=== PATIENT | female | born 1940 | race Caucasian/White ===

== ENCOUNTER 2017-04-24 07:46 | Outpatient (CLI) | payer MEDICARE, OTHER ==
--- NOTE | 2017-04-24 11:27 | MRI ---
MRI LUMBAR SPINE WITHOUT CONTRASTS: Technique: Multiplanar, multisequence imaging of the lumbar spine obtained. History: Low back pain. Paraesthesia to the right leg and hip. FINDINGS: Lumbar vertebra maintain normal height. There is mild anterior wedging of the T11 vertebra. No edema is present. This suggests a stable anterior wedge compression. There is a grade I spondylolisthesis at L4-5. There are degenerative disc changes at all levels. L1-2: Mild disc bulge abuts the thecal sac. Mild facet hypertrophy. No significant central canal or f oraminal stenosis. L2-3: Diffuse disc bulge flattens the thecal sac. Facet arthrosis and hypertrophy. Mild central canal stenosis. L3-4: Broad based disc bulge with ==== facet and ligamentous hypertrophy is more prominent. There is moderate central canal stenosis at this level. L4-5: Anterolisthesis with associated diffuse disc bulge flattens the anterior thecal sac. Facet and ligamentous hypertrophy. Moderate central canal stenosis. Bilateral foraminal stenosis. L5-S1: Mild disc bulge, mild facet arthrosis. No central canal or foraminal stenosis. IMPRESSION: 1. Grade I anterolisthesis at L4-5 with associated diffuse disc bulge resulting in moderate central c anal stenosis and bilateral foraminal stenosis. Foraminal encroachment appears more pronounced on the left. 2. Mild central canal stenosis of L3-4 and L2-3 as described. 3. Mild anterior wedge deformity at the T11 vertebra appears stable. POS: [facility]
--- NOTE | 2017-04-24 12:58 | MRI ---
MRI PELVIS WITHOUT CONTRAST: INDICATIONS: A 76-year-old female with neuralgia and paresthesia of the right aspect of the pelvis. COMPARISON: No comparisons are available. TECHNIQUE: Multiplanar, multisequence MR images were obtained of the pelvis without IV contrast. FINDINGS: There is a partial-thickness tear involving the mid right gluteus medius, at its insertion, with surr ounding trochanteric bursitis. The right gluteus medius is intact. The rectus femoris and hamstring origins on the right appear within normal limits. No iliopsoas bursitis is evident. There is moder ate degenerative changes involving both hips, associated with subchondral cyst-like abnormalities see n involving the acetabula anteriorly. No definite paralabral cyst is evident. The sacral neural for armaan appear to be patent. The visualized aspects of the sciatic nerve appear within normal limits. There are scattered diverticula involving the colon. No free fluid is evident. There is a fat-cont aining right inguinal hernia. No enlarged lymph nodes are evident. There is a 6.7 cm suspected simp le cystic abnormality involving the left adnexa on image 24 of series 6. The visualized aspects of t he right adnexa are unremarkable. IMPRESSION: 1. Partial-thickness split tear involving the right gluteus minimis tendon, at the insertion, with a ssociated mild to moderate trochanteric bursitis. 2. 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 3. A 7 mm suspected serous inclusion cyst of the left ovary. Recommend a follow-up pelvic ultrasoun d in one year to document stability. 4. Colonic diverticulosis. 5. Fat-containing right inguinal hernia. 6. No appreciable sacral neural foraminal narrowing demonstrated. POS: [facility]
== END 2017-04-24 07:47 | disposition home or self-care (01) ==
LOC: MRI 07:46
PROVIDERS: ATTEND Family Medicine
DX: G57.11 Meralgia paresthetica, right lower limb (principal); S76.311A Strain of muscle, fascia and tendon of the posterior muscle group at thigh level, right thigh, initial encounter; M16.0 Bilateral primary osteoarthritis of hip; N83.202 Unspecified ovarian cyst, left side; K57.30 Diverticulosis of large intestine without perforation or abscess without bleeding; K40.90 Unilateral inguinal hernia, without obstruction or gangrene, not specified as recurrent; M48.061 Spinal stenosis, lumbar region without neurogenic claudication; M43.8X4 Other specified deforming dorsopathies, thoracic region
CPT/HCPCS: 72148; 72195

== ENCOUNTER 2017-07-11 08:29 | Outpatient (CLI) | payer MEDICARE, OTHER ==
[2017-07-11 09:24] LABS: Hemoglobin 12.1 g/dL (12.0-16.0); Mean Corpuscular HGB CONC 32.6 g/dL (32.0-36.0); Mean Corpuscular Hemoglobin 29.7 pg (27.0-31.0); Mean Corpuscular Volume 90.9 fl (81.0-99.0); Mean Platelet Volume 6.3 fL (7.4-10.4); Platelet Count 306 thou/uL (130-400); RBC Distribution Width 12.3 % (11.5-14.5); Red Blood Cell (RBC) Count 4.09 mill/uL (4.20-5.40); White Blood Cell (WBC) Count 5.1 thou/uL (4.8-10.8)
[2017-07-11 09:48] LABS: Anion Gap 9 mmol/L (10-20); BUN (Urea Nitrogen) 13 mg/dL (9.8-20.1); Calc. Creatinine Clearance 0 mL/min (70-130); Calcium 9.4 mg/dL (7.8-10.44); Carbon Dioxide 27 mmol/L (23-31); Chloride 108 mmol/L (98-107); Estimated GFR-MDRD 73; Glucose 92 mg/dL (83-110); Sodium 140 mmol/L (136-145)
--- NOTE | 2017-07-12 08:06 | EKG ---
Test Reason : Blood Pressure : / mmHG Vent. Rate : 064 BPM Atrial Rate : 064 BPM P-R Int : 212 ms QRS Dur : 084 ms QT Int : 414 ms P-R-T Axes : 058 072 041 degrees QTc Int : 427 ms Sinus rhythm with 1st degree A-V block Possible Anterior infarct (cited on or before 05-JAN-2008) Abnormal ECG When compared with ECG of 05-JAN-2008 10:44, OH interval has increased Confirmed by DR. Ajay LEW ([id number]) on 07/12/2017 8:06:26 AM Referred By: YAIMA Confirmed By:DR. Ajay LEW
== END 2017-07-11 08:30 | disposition home or self-care (01) ==
LOC: LABBT 08:29
PROVIDERS: ATTEND Neurological Surgery
DX: Z01.818 Encounter for other preprocedural examination (principal); M43.16 Spondylolisthesis, lumbar region
CPT/HCPCS: 80048; 85027; 93005; 93010

== ENCOUNTER 2017-07-11 08:30 | Inpatient (IN) | payer MEDICARE, OTHER ==
[2017-07-11 09:07] VITALS: BMI 28.4
[2017-07-14] MEDS ORDERED: CEFAZOLIN/Water 2 GM/20 ML SYRINGE ONE (06:03)
[2017-07-14] MEDS ORDERED: Sodium Chloride 0.9% 10 ML ONE (06:27)
[2017-07-14] MEDS ORDERED: Fentanyl 250 MCG/5 ML VIAL ONE ×2 (06:55→10:22)
--- NOTE | 2017-07-14 09:29 | OP ---
DATE OF PROCEDURE: 07/14/2017 SURGEON: Rosa Maria Carlin BUILDING PERFORMANCE SPECIALIST: Nitin Oquendo PA-C PROCEDURE: L4-5 laminectomy, posterolateral arthrodesis, demineralized bone matrix, local morselized autograft, pedicle screw instrumentation L4-L5. PROCEDURE IN DETAIL: The patient was brought in the operating room intubated. She was rolled in the prone position on gel-filled chest rolls. Incision made exposing L4 and L5 and our level was confir med by x-ray. As expected, she had very severe deformity with sway back syndrome anterolisthesis. W e needed to expose from L3-S1 to adequately access this area. A complete L5, complete L4, and inferi or L3 laminectomies were performed to adequately decompress the L4-5 interspace. After complete deco mpression had been secured, pedicle screws were placed at L4 and L5 bilaterally using lateral fluoros copic guidance. The bone was extremely soft and osteoporotic. A maritza was secured between the screws, connected by nuts which were final tightened. The wound was extensively irrigated, immaculate hemos tasis was secured. A combination of demineralized bone matrix, local morselized autograft was laid o zack the laminar and posterolateral surfaces for the purpose of arthrodesis. Vancomycin powder was ap plied and the wound was closed in anatomic layers.
[2017-07-14] MEDS ORDERED: Promethazine HCl 25 MG/ML VIAL ONE (09:59)
[2017-07-14] MEDS ORDERED: Non-Formulary Medication 1 EACH PO PRN (10:30)
[2017-07-14] MEDS ORDERED: Ondansetron HCl/PF 4 MG/2 ML Vial IVP PRN (10:30)
[2017-07-14] MEDS ORDERED: Promethazine HCl 25 MG/ML VIAL IM/IV PRN (10:30)
[2017-07-14] MEDS ORDERED: HYDROmorphone 2 MG/ML VIAL SLOW IVP PRN (10:30)
[2017-07-14] MEDS ORDERED: diphenhydrAMINE 25 MG CAP PO PRN (12:07)
[2017-07-14] MEDS ORDERED: Promethazine 25 MG TAB PO PRN (12:07)
[2017-07-14] MEDS ORDERED: tiZANidine HCl 4 MG TAB PO PRN (12:07)
[2017-07-14] MEDS ORDERED: Milk Of Magnesia 30 ML UDCUP PO PRN (12:07)
[2017-07-14] MEDS ORDERED: Meperidine HCl/PF 25 MG/ML VIAL SLOW IVP PRN (12:07)
[2017-07-14] MEDS ORDERED: Promethazine HCl 12.5 MG SUPP PR PRN (12:07)
[2017-07-14] MEDS ORDERED: Mag-Al 1200 mg/1200 mg/30 ML UDCUP PO PRN (12:07)
[2017-07-14] MEDS ORDERED: HYDROcodone/Acetaminophen 7.5/325 mg Tablet PO PRN (12:07)
[2017-07-14] MEDS ORDERED: diphenhydrAMINE 50 MG/ML VIAL IVP PRN (12:07)
[2017-07-14] MEDS ORDERED: Promethazine HCl 25 MG/ML VIAL IM PRN (12:07)
[2017-07-14] MEDS ORDERED: Ondansetron HCl/PF 4 MG/2 ML Vial IM PRN (12:08)
[2017-07-14] MEDS: CEFAZOLIN/Water 2 GM/20 ML SYRINGE SLOW IVP SCH ×2 (14:46→21:11)
[2017-07-14] MEDS: Sodium Chloride 0.9% 1,000 ML IV SCH (14:47)
[2017-07-14] MEDS ORDERED: ePHEDrine/0.9% NaCl/PF SYRINGE 50 mg/10 ml ONE (17:15)
[2017-07-14] MEDS ORDERED: PROPOFOL 200 MG/20 ML VIAL ONE (17:15)
[2017-07-14] MEDS ORDERED: diphenhydrAMINE 50 MG/ML VIAL ONE (17:15)
[2017-07-14] MEDS ORDERED: Lidocaine 1% PF 5 ML VIAL ONE (17:15)
[2017-07-14] MEDS ORDERED: Ketorolac Tromethamine 30 MG/ML VIAL ONE (17:15)
[2017-07-14] MEDS ORDERED: Ondansetron HCl/PF 4 MG/2 ML Vial ONE (17:15)
[2017-07-14] MEDS ORDERED: Glycopyrrolate 0.2 MG/ML 5 ML SYRINGE ONE (17:15)
[2017-07-14] MEDS ORDERED: PHENYLEPHRINE-NS 100 MCG/ML 10 ML SYRINGE ONE (17:15)
[2017-07-14] MEDS ORDERED: Dexamethasone 20 MG/5 ML VIAL ONE (17:15)
[2017-07-14] MEDS ORDERED: traMADol HCl 50 MG TAB PO PRN (20:46)
[2017-07-14] MEDS ORDERED: Atorvastatin Calcium 20 MG TAB PO SCH (21:00)
--- NOTE | 2017-07-14 21:28 | PDOC.PN ---
- Subjective Encounter Start Date: 07/14/17 Encounter Start Time: 13:00 Patient seen and examined. No new complaints. Follows Dr Shane. No CP/SOB. - Objective MAR Reviewed: Yes Vital Signs & Weight: Vital Signs (12 hours) Temp Pulse Resp BP Pulse Ox 07/14/17 21:02 97.9 F 79 16 144/74 H 96 07/14/17 16:00 97.8 F 71 16 115/69 07/14/17 11:50 97.8 F 80 18 98 Weight Weight 171 lb EKG Reviewed by me: Yes (SR, 1st degree AV block) Phys Exam - Physical Examination Constitutional: NAD Respiratory: no wheezing, no rhonchi Cardiovascular: RRR, no rub Gastrointestinal: soft, non-tender, positive bowel sounds Musculoskeletal: no edema Dx/Plan - Plan DVT proph w/SCDs IMPRESSION: 1. HTN 2. HLD 3. Chronic low back pain PLAN: * Cont Toprol * Cont Statins Review of Systems - Review of Systems Respiratory: negative: Cough, Dry, Shortness of Breath, Hemoptysis, SOB with Excertion, Pleuritic Pain, Sputum, Wheezing Cardiovascular: negative: chest pain, palpitations, orthopnea, paroxysmal nocturnal dyspnea, edema, light headedness - Medications/Allergies Allergies/Adverse Reactions: Allergies Allergy/AdvReac Type Severity Reaction Status Date / Time codeine Allergy Verified 07/11/17 09:08 [From Tylenol-Codeine #3] morphine Allergy Verified 07/11/17 09:08 Medications: Current Medications Hydrocodone Bitart/Acetaminophen (Ashley 7.5/325) 1 tab PO Q4H PRN PRN Reason: Pain (1-3) Hydrocodone Bitart/Acetaminophen (Ashley 7.5/325) 2 tab PO Q4H PRN PRN Reason: Moderate Pain (4-6) Al Hydroxide/Mg Hydroxide (Maalox) 30 ml PO Q4H PRN PRN Reason: Heartburn or Indigestion Atorvastatin Calcium (Lipitor) 20 mg PO HS LOUISE Last Admin: 07/14/17 20:42 Dose: 20 mg Cefazolin Sodium (Ancef) 2 gm SLOW IVP Q8HR [facility]OU[facility] Stop: 07/14/17 22:01 Last Admin: 07/14/17 21:11 Dose: 2 gm Cholecalciferol (Vitamin D3) 1,000 units PO QAM LOU[facility] Diphenhydramine HCl (Benadryl) 25 mg PO Q6H PRN PRN Reason: Itching Diphenhydramine HCl (Benadryl) 25 mg IVP Q6H PRN PRN Reason: Itching Fish Oil (Fish Oil) 1,000 mg PO DAILY [facility] Sodium Chloride (Normal Saline 0.9%) 1,000 mls @ 75 mls/hr IV .[id number] [facility] Last Admin: 07/14/17 14:47 Dose: 1,000 mls Ketorolac Tromethamine (Toradol) 15 mg IVP Q6HR [facility] Stop: 07/16/17 12:01 Magnesium Hydroxide (Milk Of Magnesium) 30 ml PO Q12H PRN PRN Reason: Constipation Meperidine HCl (Demerol) 25 mg SLOW IVP Q2H PRN PRN Reason: Moderate Breakthrough Pain Meperidine HCl (Demerol) 35 mg SLOW IVP Q2H PRN PRN Reason: Severe Breakthrough Pain Metoprolol Succinate (Toprol Xl) 50 mg PO HS [facility] Last Admin: 07/14/17 20:42 Dose: 50 mg Ondansetron HCl (Zofran) 4 mg IM Q6H PRN PRN Reason: Nausea Soma 250mg Patient's (Home Medication) 1 each PO QAM [facility] Garlic 1000mg Patient's Home Medication 1 each PO QAM [facility] Promethazine HCl (Phenergan) 12.5 mg IM Q4H PRN PRN Reason: Nausea/Vomiting Promethazine HCl (Phenergan) 12.5 mg PO Q4H PRN PRN Reason: Nausea/Vomiting Promethazine HCl (Phenergan Suppository) 12.5 mg [place] Q4H PRN PRN Reason: Nausea/Vomiting Sodium Chloride (Flush - Normal Saline) 10 ml IVF Q12HR [facility] Last Admin: 07/14/17 21:24 Dose: 10 ml Sodium Chloride (Flush - Normal Saline) 10 ml IVF PRN PRN PRN Reason: Saline Flush Tizanidine HCl (Zanaflex) 4 mg PO Q6H PRN PRN Reason: MUSCLE SPASM Last Admin: 07/14/17 20:42 Dose: 4 mg Tramadol HCl (Ultram) 50 mg PO Q6H PRN PRN Reason: Pain
[2017-07-14] MEDS: HYDROcodone/Acetaminophen 7.5/325 mg Tablet PO PRN (23:37)
[2017-07-14] MEDS: Ketorolac Tromethamine 30 MG/ML VIAL IVP SCH (23:39)
[2017-07-15] MEDS: Ketorolac Tromethamine 30 MG/ML VIAL IVP SCH ×2 (01:57→05:36)
[2017-07-15] MEDS: Sodium Chloride 0.9% 1,000 ML IV SCH (02:32)
[2017-07-15] MEDS ORDERED: Fish Oil 1,000 MG CAP PO SCH (09:00)
[2017-07-15] MEDS ORDERED: SOMA 250 MG PO SCH (09:00)
[2017-07-15] MEDS ORDERED: GARLIC 1000 MG PO SCH (09:00)
[2017-07-15 09:54] VITALS: BP 118/65; TEMP 98.5
[2017-07-15] MEDS: HYDROcodone/Acetaminophen 7.5/325 mg Tablet PO PRN (12:05)
--- NOTE | 2017-07-15 12:26 | DIS ---
ATTENDING PHYSICIAN: Dr. Pratik Dyer. HOSPITAL COURSE: Patient is a 76-year-old female, who was recently seen in our office for low back and right L4 radiculopathy. Her MRI revealed L4-L5 spondylolisthesis and stenosis, L4-L5 de compression and fusion was recommended. The patient underwent the surgery and she is postop day #1 t anamaria. She reports that she is doing well. Her pain is well controlled with p.o. meds. She is dada ating regular diet, and she is voiding appropriate. She was placed in a TLSO following surgery. She has been compliant with this brace for any out of bed activities. I have advised the patient is oka y to remove when she is lying down in the bed or briefly to shower. Her VICKY drain output is trending downward and we will remove and dismiss the patient home today. We will plan to follow up in 2 weeks . I have an appointment made with x-rays at that time. I have discussed home care precautions and r maryana to reach out to us sooner. She has been provided with prescriptions for [place], Zanaflex, and K eflex. Please reach out to Neurosurgery Service for additional questions or concerns.
== END 2017-07-15 12:49 | disposition home or self-care (01) | DRG 460 ==
LOC: SURG A 07-14 05:39 → SURG B 07-14 11:25
PROVIDERS: ADMIT Neurological Surgery; ATTEND Neurological Surgery
PROC: 0SG0071 Fusion of Lumbar Vertebral Joint with Autologous Tissue Substitute, Posterior Approach, Posterior Column, Open Approach (ICD-10-PCS; principal; 2017-07-14)
PROC: 01NB0ZZ Release Lumbar Nerve, Open Approach (ICD-10-PCS; 2017-07-14)
DX: M43.16 Spondylolisthesis, lumbar region (principal); E78.5 Hyperlipidemia, unspecified; I10 Essential (primary) hypertension; M48.061 Spinal stenosis, lumbar region without neurogenic claudication; M51.16 Intervertebral disc disorders with radiculopathy, lumbar region
CPT/HCPCS: 76000; 80048; 85027; 93005; 93010; A4216; C1713; C1768; G8978-GP-CJ; G8979-GP-CI; J0131; J1100; J1200; J1885; J2001; J2405; J2550; J2704; J3010; J3370; J3490

== ENCOUNTER 2017-07-29 15:37 | Outpatient (CLI) | payer MEDICARE, OTHER ==
--- NOTE | 2017-07-29 16:20 | RAD ---
LUMBAR SPINE TWO VIEWS: History: 76-year-old female with history of disc disease, prior surgery on 07-14-17, now with pain in both legs. FINDINGS: Post op laminectomy and pedicle screw placement changes at L4-5 with mild anterolisthesis. No evidenc e for acute fracture. Otherwise, there is generalized spondylosis. IMPRESSION: Post op laminectomy and pedicle screw placement changes at L4-5 with mild anterolisthesis. POS: [facility]
== END 2017-07-29 15:38 | disposition home or self-care (01) ==
LOC: TBSIIMAG 15:37
PROVIDERS: ATTEND Neurological Surgery
DX: M51.36 Other intervertebral disc degeneration, lumbar region (principal); M43.16 Spondylolisthesis, lumbar region; Z98.890 Other specified postprocedural states
CPT/HCPCS: 72100

== ENCOUNTER 2017-09-17 13:07 | Outpatient (CLI) | payer MEDICARE, OTHER ==
--- NOTE | 2017-09-17 14:36 | RAD ---
2 VIEWS LUMBAR SPINE: Date: 09/17/17 HISTORY: Lumbar fusion. Status post surgery 2 months ago. Burning sensation down both legs. COMPARISON: 07/29/17. FINDINGS: Stable mild to moderate degenerative change at the L2-L3 disc space level. Persistent 2.0 mm of retro listhesis of L2 upon L3. Bilateral transpedicular screws at L4 and L5, without perihardware lucency. There is 1.0 cm anterolis thesis of L4 upon L5 (previously also 1.0 cm of anterolisthesis). Stable laminectomy defect at L4. There is a stable mild compression fracture at T12. IMPRESSION: Postsurgical changes as above. POS: [facility]
== END 2017-09-17 13:08 | disposition home or self-care (01) ==
LOC: TBSIIMAG 13:07
PROVIDERS: ATTEND Neurological Surgery
DX: M43.16 Spondylolisthesis, lumbar region (principal); Z98.890 Other specified postprocedural states
CPT/HCPCS: 72100

== ENCOUNTER 2017-12-18 13:19 | Outpatient (CLI) | payer MEDICARE, OTHER ==
--- NOTE | 2017-12-18 13:50 | RAD ---
LUMBAR SPINE SERIES 2 VIEWS: Date: 12/18/17 HISTORY: Follow-up surgery. COMPARISON: 09/17/17. FINDINGS: Postoperative changes of the spine are noted with bilateral pedicle screws placed at the L4-5 level. Approximately 11.0 mm of spondylolisthesis is seen, which is felt to be similar to the prior examinat ion. Minimal retrolisthesis of L2 on L3 and disc narrowing is seen. Overall appearance appears fairly stable. Postop laminectomy changes at L4 are also noted. Bones appear demineralized. Slight scoliosi s convex to the left. IMPRESSION: Stable postop changes. POS: [facility]
== END 2017-12-18 13:20 | disposition home or self-care (01) ==
LOC: TBSIIMAG 13:19
PROVIDERS: ATTEND Neurological Surgery
DX: M43.16 Spondylolisthesis, lumbar region (principal); Z98.890 Other specified postprocedural states
CPT/HCPCS: 72100

== ENCOUNTER 2018-01-07 10:21 | Outpatient (CLI) | payer MEDICARE, OTHER ==
--- NOTE | 2018-01-07 12:39 | MRI ---
MRI OF CERVICAL SPINE PERFORMED WITHOUT CONTRAST ENHANCEMENT: HISTORY: Cervical radiculopathy. Previous surgery. Bilateral leg tingling. COMPARISON: A 11/18/13 CT examination and a 2007 MRI study. FINDINGS: The patient has a reversal to the normal cervical curve. There is anterior plate and screws which benavides ve been placed at the C3-4 level. There is anterolisthesis of C4 on C5 of approximately 4-5 mm. C2-3: Degenerative facet changes are present at this level which are associated with some mild left foraminal narrowing. No central canal stenosis. C3-4: Facet hypertrophic changes are also present at this level with some mild left-sided foraminal narrowing. C4-5: Anterolisthesis at this level is associated with some mild bilateral foraminal narrowing which appears slightly greater on the right and mild canal stenosis. C5-6: Posterior osteophytic bar and disk changes are seen at this level with a mild to moderate degr ee of canal narrowing and some mild to moderate right-sided foraminal stenosis. C6-7: No significant canal or foraminal narrowing. C7-T1: Unremarkable. IMPRESSION: Postoperative changes of the cervical spine with anterior cervical plate and screws placed at the C3- 4 level. There is a reversal to the normal cervical curve. There is anterolisthesis of C4 on C5 wit h mild canal stenosis at C4-5 and mild to moderate canal stenosis at C5-6 as well as areas of foramin al narrowing as discussed above. POS: [facility]
== END 2018-01-07 10:22 | disposition home or self-care (01) ==
LOC: TBSIIMAG 10:21
PROVIDERS: ATTEND Neurological Surgery
DX: M47.12 Other spondylosis with myelopathy, cervical region (principal); M48.02 Spinal stenosis, cervical region; M99.81 Other biomechanical lesions of cervical region; M43.12 Spondylolisthesis, cervical region; Z98.890 Other specified postprocedural states
CPT/HCPCS: 72141

== ENCOUNTER 2019-04-15 10:27 | Emergency (ER) | payer MEDICARE, OTHER ==
[2019-04-15] MEDS ORDERED: Fentanyl 100 MCG/2 ML VIAL ONE (11:16)
[2019-04-15] MEDS ORDERED: Diazepam 10 MG/2 ML SYRINGE IVP SCH (11:30)
--- NOTE | 2019-04-15 12:02 | CT ---
CT lumbar spine noncontrast HISTORY: Low back pain. Injury. Prior surgery. FINDINGS: Minimal chronic compression of the L1 inferior endplate. Vertebral body heights otherwise m aintained. Minimal degenerative retrolisthesis at the L1-2, L2-3, and L3-4 levels. Minimal degenerative spondylolisthesis at the L4-5 level. Bilateral pedicle screws and vertical rods at the L4-5 level without perihardware lucency. Prominent osteophytosis throughout the vertebral bodies and facets. Multilevel disc bulge and prominent osteophytosis. Gas within the L3 right lateral recess appears to represent inferior extension of and L2-3 disc herniation likely compresses the right L3 nerve root. No acute fracture or dislocation are apparent. There is calcification throughout the arterial structu res. IMPRESSION: Prominent osseous degenerative changes and postoperative changes lumbar spine. No acute o sseous abnormalities are demonstrated. Large right posterolateral disc herniation at L2-3 with inferior extension compressing the right L3 n erve root. Clinical correlation regarding the right L3 dermatome is required. Atherosclerosis.
[2019-04-15] MEDS ORDERED: Diazepam 10 MG/2 ML SYRINGE ONE (12:11)
--- NOTE | 2019-04-15 12:28 | RAD ---
Right hip 2 views HISTORY: Right hip pain. FINDINGS: Moderate joint space narrowing. Mild osteophytosis and subchondral sclerosis. Femoral head contour is maintained. No acute fracture, dislocation, or aggressive osseous erosions. IMPRESSION: Mild to moderate osteoarthritic changes right hip.
--- NOTE | 2019-04-15 12:33 | RAD ---
AP view of the pelvis INDICATION: Right-sided back pain COMPARISON: None. FINDINGS: Bones: No acute fracture or subluxation is evident. Bone mineralization appears within normal limits. There is postoperative change at L4-L5 consistent with a posterior lateral interbody fusion and laminectomy changes at L4 and L5. Hips: There is mild degenerative change of both hips. There is chondrocalcinosis. SI joints and symphysis pubis: Normal appearing. Intrapelvic contents: Within normal limits. IMPRESSION: No acute osseous abnormality.
[2019-04-15] MEDS ORDERED: Dexamethasone 4 mg/ml Vial ONE (13:11)
== END 2019-04-15 13:42 | disposition home or self-care (01) ==
LOC: ERS 10:27
DX: M51.16 Intervertebral disc disorders with radiculopathy, lumbar region (principal); E78.5 Hyperlipidemia, unspecified; E78.00 Pure hypercholesterolemia, unspecified; Z79.899 Other long term (current) drug therapy
CPT/HCPCS: 72131; 72170; 96374; 96375; J1100; J3010; J3360

== ENCOUNTER 2019-09-13 13:00 | Outpatient (CLI) | payer MEDICARE, OTHER ==
--- NOTE | 2019-09-13 14:16 | RAD ---
CERVICAL SPINE 5 VIEWS: DATE: 09/13/2019. COMPARISON: None. HISTORY: Pain, prior surgery. FINDINGS: Frontal imaging demonstrates multilevel bilateral facet and uncovertebral osteophyte formation, most prominent on the left within the mid cervical spine. There is atherosclerotic calcification overlyin g the carotid system on the right. Open mouth odontoid view demonstrates a normal-appearing dens in C1-2 articulation. Anterior diskectomy and fusion hardware is present at C3-4. There is reversal of normal cervical lordosis with a focal area of kyphosis within the cervical spine at the C4 level. T here is prominent multilevel disk space narrowing with degenerative end plate change and anterior ost eophyte formation at C4-5, C5-6, C6-7, and C7-T1. On the neutral lateral exam, there is mild anterol isthesis at C4-5 measuring approximately 3 mm. On flexion, the anterolisthesis at C4-5 measures appr oximately 4 mm and on extension the anterolisthesis at C4-5 has decreased to 1-2 mm. IMPRESSION: Postoperative and degenerative change within the cervical spine as detailed above. POS: [facility]
--- NOTE | 2019-09-13 15:06 | MRI ---
MRI lumbar spine noncontrast HISTORY: Low back pain. Prior surgery. FINDINGS: The conus medullaris has a normal appearance. Vertebral body heights are maintained. Mild c hronic appearing compression of the T11 superior endplate is again demonstrated without residual edema. There is desiccation of all of the intervertebral discs. T12-L1: Mild osteophytosis. Central canal and neural foramina are patent. L1-2: Disc space narrowing. Minimal degenerative retrolisthesis. Discogenic endplate changes of the b one marrow. Mild posterior disc bulge. Fluid within the facets and osteophytosis, right greater than left. Centra l canal remains patent. Mild to moderate bilateral foraminal stenoses. L2-3: Disc space narrowing and minimal degenerative retrolisthesis. No significant central canal sten osis. Osteophytosis and fluid in the facets. Right greater than left. Moderate right and mild to moderate left foraminal stenoses. L3-4: Disc space narrowing. Posterior operative decompression suspected. Thecal sac remains widely pa tent. There is osteophytosis of the facets. Moderate right and moderate to severe left foraminal stenoses. L4-5: Metallic susceptibility artifact results from bilateral pedicle screws and vertical rods. There is disc space narrowing and 0.7 cm spondylolisthesis. Posterior operative decompression with a patent thecal sac. Right neural foramen is patent. Possible stenosis of the left neural foramen (also mostly obscured by metallic artifact). L5-S1: Thecal sac is patent. Osteophytosis of the facets. Mild left foraminal stenosis. Right neural foramen is patent. IMPRESSION : Postoperative and multilevel degenerative changes throughout the lumbar spine as detailed above. Sten osis most pronounced at the left L3-4 neural foramen. Clinical correlation and the left L3 dermatome is required.
--- NOTE | 2019-09-13 15:16 | MRI ---
MRI cervical spine noncontrast HISTORY: Neck pain with radiculopathy. Prior surgery. COMPARISON: 01/07/2018. FINDINGS: Desiccation of all of the intervertebral discs. Discogenic endplate changes throughout the bone marrow. No bone marrow edema apparent. C2-3: Osteophytosis. Central canal and neural foramina are patent. C3-4: Anterior operative fixation with metallic susceptibility artifact. Minimal degenerative spondyl olisthesis. Osteophytosis of the facets. Central canal and neural foramina are patent. C4-5: Disc space narrowing. Spondylolisthesis at this level measured at 0.4 cm. Impingement upon the ventral aspect of the spinal cord without abnormal signal. Circumferential degenerative changes. Severe stenosis of the central canal. Neural foramina are patent. C5-6: Disc space narrowing. Minimal degenerative retrolisthesis. Posterior osteophyte/disc complex an d circumferential degenerative changes. Severe stenosis of the central canal. Mild to moderate right and mild left foraminal stenoses. C6-7: Disc space narrowing and minimal degenerative retrolisthesis. Mild posterior osteophyte/disc co mplex. Circumferential degenerative changes. Mild stenosis of the central canal. Moderate right and mild left foraminal stenoses. C7/T1: Disc space narrowing. Posterior osteophyte/disc complex and circumferential degenerative long es. Moderate stenosis of the central canal. Mild right and moderate left foraminal stenoses. IMPRESSION : Postoperative and multilevel degenerative changes throughout the cervical spine as detailed above. Mo st severe at the C4-5 level where there is 4 mm spondylolisthesis and impingement upon the spinal cord. No evidence of myelomalacia.
== END 2019-09-13 13:01 | disposition home or self-care (01) ==
LOC: TBSIIMAG 13:00
PROVIDERS: ATTEND Neurological Surgery
DX: M54.5 Low back pain (principal); M48.02 Spinal stenosis, cervical region; M47.812 Spondylosis without myelopathy or radiculopathy, cervical region; M43.12 Spondylolisthesis, cervical region; M48.061 Spinal stenosis, lumbar region without neurogenic claudication; M47.816 Spondylosis without myelopathy or radiculopathy, lumbar region; Z98.1 Arthrodesis status
CPT/HCPCS: 72050; 72141; 72148

== ENCOUNTER 2020-02-10 10:47 | Outpatient (CLI) | payer MEDICARE, OTHER ==
--- NOTE | 2020-02-10 11:15 | MMO ---
Bilateral MAMMO Bilat Screen [facility]. CLINICAL HISTORY: Patient is 79 years old and is seen for screening. The patient has the following family history of breast cancer: mother. The patient has no personal history of cancer. VIEWS: The views performed were: bilateral craniocaudal with tomosynthesis and bilateral mediolateral oblique with tomosynthesis. FILMS COMPARED: The present examination has been compared to prior imaging studies performed at [facility] on 07/30/2012, 11/26/2013, 03/28/2015 and 01/10/2017. This study has been interpreted with the assistance of computer-aided detection. MAMMOGRAM FINDINGS: There are scattered fibroglandular densities. There are no suspicious masses, suspicious calcifications, or new areas of architectural distortion. IMPRESSION: THERE IS NO MAMMOGRAPHIC EVIDENCE OF MALIGNANCY. A ROUTINE FOLLOW-UP MAMMOGRAM IN 1 YEAR IS RECOMMENDED. THE RESULTS OF THIS EXAM WERE SENT TO THE PATIENT. ACR BI-RADS Category 1 - Negative MAMMOGRAPHY NOTE: 1. A negative mammogram report should not delay a biopsy if a dominant of clinically suspicious mass is present. 2. Approximately 10% to 15% of breast cancers are not detected by mammography. 3. Adenosis and dense breasts may obscure an underlying neoplasm. Reported by: ABDIRAHMAN PEREA MD Electonically Signed: [id number]
== END 2020-02-10 10:48 | disposition home or self-care (01) ==
LOC: BICMAMMO 10:47
PROVIDERS: ATTEND Family Medicine
DX: Z12.31 Encounter for screening mammogram for malignant neoplasm of breast (principal); Z80.3 Family history of malignant neoplasm of breast
CPT/HCPCS: 77063; 77067

== ENCOUNTER 2020-03-07 08:44 | Inpatient (IN) | payer MEDICARE, OTHER ==
[2020-03-07] MEDS ORDERED: Dexamethasone 10 MG/ML VIAL ONE (09:19)
[2020-03-07 09:33] LABS: #Eosinphils 0.1 thou/uL (0.0-0.7); #Lymphocytes 0.7 thou/uL (1.20-3.40); #Monocytes 0.2 thou/uL (0.11-0.59); #Neutrophils 6.3 thou/uL (1.40-6.50); %Basophils 0.1 % (0.0-1.0); %Eosinophils 0.7 % (0.0-10.0); %Lymphocytes 9.5 % (21.0-51.0); %Monocytes 2.7 % (0.0-10.0); Hemoglobin 12.8 g/dL (12.0-16.0); Mean Corpuscular HGB CONC 34.5 g/dL (32.0-36.0); Mean Corpuscular Hemoglobin 30.3 pg (27.0-31.0); Mean Corpuscular Volume 87.7 fL (78.0-98.0); Mean Platelet Volume 7.2 fL (7.4-10.4); Platelet Count 348 thou/uL (130-400); RBC Distribution Width 12.2 % (11.5-14.5); Red Blood Cell (RBC) Count 4.23 mill/uL (4.20-5.40); White Blood Cell (WBC) Count 7.3 thou/uL (4.8-10.8)
[2020-03-07 09:51] LABS: ALT (SGPT) 71 U/L (8-55); AST (SGOT) 34 U/L (5-34); Albumin 3.2 g/dL (3.4-4.8); Alkaline Phosphatase 68 U/L (40-110); Anion Gap 15 mmol/L (10-20); BUN (Urea Nitrogen) 12 mg/dL (9.8-20.1); Bilirubin, Total 0.8 mg/dL (0.2-1.2); Calc. Creatinine Clearance 0 mL/min (70-130); Calcium 8.5 mg/dL (7.8-10.44); Carbon Dioxide 28 mmol/L (23-31); Chloride 101 mmol/L (98-107); Estimated GFR-MDRD 89; Glucose 113 mg/dL (83-110); Potassium 3.7 mmol/L (3.5-5.1); Protein, Total 6.2 g/dL (6.0-8.3); Sodium 140 mmol/L (136-145)
--- NOTE | 2020-03-07 09:57 | RAD ---
PORTABLE CHEST 1 VIEW: Date: 03/07/2020 Time: 0902 hours HISTORY: COVID-positive. FINDINGS: Comparison made with exam of 04/01/2015. The heart size is normal. There are multifocal patchy infiltrates bilaterally. No pneumothoraces or p leural effusions are seen. There are postop changes of left rotator cuff repair. IMPRESSION: Findings are suspicious for COVID-19 pneumonia. POS: [facility]
[2020-03-07] MEDS ORDERED: Enoxaparin Sodium 80 MG/0.8 ML SYRINGE ONE (10:13)
[2020-03-07] MEDS ORDERED: Azithromycin 500 MG VIAL ONE (10:13)
[2020-03-07] MEDS ORDERED: Aspirin Chewable 81 MG TAB ONE (10:13)
[2020-03-07] MEDS ORDERED: cefTRIAXone\\ROCEPHIN 2 GM VIAL ONE (10:13)
--- NOTE | 2020-03-07 10:25 | CT ---
EXAM: CTA of the chest HISTORY: Increasing shortness of breath. Covid positive COMPARISON: None TECHNIQUE: Multiple contiguous axial images were obtained a CTA of the chest with contrast per pulmon yanira embolism protocol. 3-D oblique MIP reformats and direct coronal reformats were performed. FINDINGS: HEART: Normal in size without focal cardiac abnormality. PULMONARY ARTERIES: There is a questionable filling defect within a pulmonary arterial branch in the right lower lobe. MEDIASTINUM: No hilar or mediastinal lymphadenopathy. Atherosclerotic calcifications in the aorta. LUNGS: Multifocal peripheral groundglass opacities are consistent with Covid pneumonia. PLEURAL SPACE: There may be trace bilateral pleural effusions. CHEST WALL SOFT TISSUES: Unremarkable VISUALIZED OSSEOUS STRUCTURES: Degenerative changes in the spine. VISUALIZED SUBDIAPHRAGMATIC STRUCTURES: Unremarkable IMPRESSION: 1. Possible small pulmonary embolism in a right lower lobe arterial branch 2. Covid pneumonia
--- NOTE | 2020-03-07 15:04 | PDOC.HHP ---
Hospitalist HPI - History of Present Illness Dyspnea History of Present Illness: This is an 79-year-old female patient with a history of hyperlipidemia, radiculopathy who presents with a weeks history of ongoing worsening shortness of breath. Symptoms got worse a day ago when she activated EMS but declined to come to the ED. With worsening hypoxia today with oxygen saturation high 80s, she called EMS with improvement in oxygen saturations with 94% on 3 L. She was brought here for further management. She denies any associated chest pain. She has dry cough however denies any fevers headaches diarrhea swelling of her feet or wheezing. Has been tested for Covid Juanpablo and she was also tested positive for 3 days ago. On arrival at the ED her blood pressure was 163/92, pulse 82, respiratory rate 20, temperature 98.9 saturation at 98 on 3 L oxygen. Labs showed essentially normal BMP, CBC was also within normal limits, D-dimer was 2.[address] she had a CTA which showed possible small pulmonary embolism in the right lower lobe and multifocal peripheral groundglass opacities consistent with Covid She was given ceftriaxone and azithromycin for pneumonia coverage. Also started on dexamethasone and levofloxacin. She also received aspirin. She otherwise was generally stable with improvement in her breathing on oxygen. Hospitalist team consulted for admission. Hospitalist ROS - Review of Systems Constitutional: denies: fever, chills, sweats, weakness Respiratory: reports: cough, dry, shortness of breath. denies: hemoptysis, SOB with excertion Cardiovascular: denies: chest pain, palpitations, orthopnea Gastrointestinal: denies: nausea, vomiting, abdominal pain, diarrhea Genitourinary: denies: dysuria, frequency, incontinence, hematuria Neurological: denies: weakness, numbness, incoordination, change in speech Hospitalist History - Past Medical History Other Medical History: Hyperlipidemia, radiculopathy - Past Surgical History Other Surgical History: Laminectomy - Family History Other Family History: None of significance - Social History Living Situation: With Family - Exam General Appearance: awake alert General - other findings: In bed, no acute distress Heart: RRR, no murmur, no gallops Respiratory: no wheezes, no rales, no ronchi, normal chest expansion Gastrointestinal: soft, non-tender, non-distended, normal bowel sounds Extremities: no cyanosis, no clubbing, no edema Neurological: cranial nerve grossly intact, normal sensation to touch Musculoskeletal: normal tone, no muscle wasting Psychiatric: normal affect, A&O x 3 Hospitalist Results - Labs Result Diagrams: 03/07/20 09:16 03/07/20 09:16 Lab results: WBC 7.3 thou/uL (4.8-10.8) 03/07/20 09:16 Hgb 12.8 g/dL (12.0-16.0) 03/07/20 09:16 Hct 37.1 % (36.0-47.0) 03/07/20 09:16 MCV 87.7 fL (78.0-98.0) 03/07/20 09:16 Plt Count 348 thou/uL (130-400) 03/07/20 09:16 Neutrophils % 87.0 % (42.0-75.0) H 03/07/20 09:16 Sodium 140 mmol/L (136-145) 03/07/20 09:16 Potassium 3.7 mmol/L (3.5-5.1) 03/07/20 09:16 Chloride 101 mmol/L (98-107) 03/07/20 09:16 Carbon Dioxide 28 mmol/L (23-31) 03/07/20 09:16 BUN 12 mg/dL (9.8-20.1) 03/07/20 09:16 Creatinine 0.64 mg/dL (0.6-1.1) 03/07/20 09:16 Glucose 113 mg/dL (83-110) H 03/07/20 09:16 Lactic Acid 1.7 mmol/L (0.5-2.2) 03/07/20 09:16 Calcium 8.5 mg/dL (7.8-10.44) 03/07/20 09:16 Total Bilirubin 0.8 mg/dL (0.2-1.2) 03/07/20 09:16 AST 34 U/L (5-34) 03/07/20 09:16 ALT 71 U/L (8-55) H 03/07/20 09:16 Alkaline Phosphatase 68 U/L (40-110) 03/07/20 09:16 Creatine Kinase 41 U/L (29-168) 03/07/20 09:16 Troponin I 0.016 ng/mL (< 0.028) 03/07/20 09:16 C-Reactive Protein 13.71 mg/dL (= or < 0.5) H 03/07/20 09:16 B-Natriuretic Peptide 77.9 pg/mL (0-100) 03/07/20 09:16 Serum Total Protein 6.2 g/dL (6.0-8.3) 03/07/20 09:16 Albumin 3.2 g/dL (3.4-4.8) L 03/07/20 09:16 Hospitalist H&P A/P - Plan Plan: 79-year-old female patient history of hypercholesterolemia presenting with ongoing worsening shortness of breath on account of Covid. Acute hypoxic respiratory failure Secondary to Covid, also concerns for PE Started on dexamethasone Continue oxygen therapy Monitor closelypulmonary consult if deteriorates. Pneumonia due to Covid Consider dexamethasone Anticoagulation Consider remdesivirinflammatory marker testing. Pulmonary embolism Likely secondary to Covid Started on Lovenoxwe will continue Transition to oral Consults with ID on ongoing anticoagulation. VT prophylaxistherapeutic on Lovenox CODE STATUSfull code
[2020-03-07 15:51] VITALS: BMI 26.7
[2020-03-07] MEDS: Enoxaparin Sodium 80 MG/0.8 ML SYRINGE SC SCH (20:10)
[2020-03-07] MEDS ORDERED: Cyclobenzaprine 10 MG TAB PO PRN (20:58)
[2020-03-07] MEDS: Atorvastatin Calcium 20 MG TAB PO SCH (21:09)
--- NOTE | 2020-03-07 23:59 | PDOC.FMACP ---
Advance Care Planning - Note Summary: Advanced Care Planning was discussed. She is full code, DPOA is .
[2020-03-08] MEDS ORDERED: traZODone HCl 50 MG TAB PO SCH (01:15)
[2020-03-08 05:24] LABS: #Basophils 0.1 thou/uL (0.0-0.2); #Lymphocytes 0.7 thou/uL (1.20-3.40); #Monocytes 0.4 thou/uL (0.11-0.59); #Neutrophils 4.6 thou/uL (1.40-6.50); %Basophils 1.5 % (0.0-1.0); %Eosinophils 0.3 % (0.0-10.0); %Lymphocytes 11.5 % (21.0-51.0); %Monocytes 6.5 % (0.0-10.0); %Neutrophils 80.1 % (42.0-75.0); Hemoglobin 11.7 g/dL (12.0-16.0); Mean Corpuscular HGB CONC 34.5 g/dL (32.0-36.0); Mean Corpuscular Hemoglobin 30.2 pg (27.0-31.0); Mean Corpuscular Volume 87.7 fL (78.0-98.0); Mean Platelet Volume 7.1 fL (7.4-10.4); Platelet Count 337 thou/uL (130-400); RBC Distribution Width 12.3 % (11.5-14.5); Red Blood Cell (RBC) Count 3.86 mill/uL (4.20-5.40); White Blood Cell (WBC) Count 5.8 thou/uL (4.8-10.8)
[2020-03-08 05:39] LABS: Anion Gap 10 mmol/L (10-20); BUN (Urea Nitrogen) 9 mg/dL (9.8-20.1); Calc. Creatinine Clearance 76 mL/min (70-130); Calcium 8.7 mg/dL (7.8-10.44); Carbon Dioxide 30 mmol/L (23-31); Chloride 100 mmol/L (98-107); Estimated GFR-MDRD 83; Glucose 130 mg/dL (83-110); Potassium 3.1 mmol/L (3.5-5.1); Sodium 137 mmol/L (136-145)
[2020-03-08] MEDS: Enoxaparin Sodium 80 MG/0.8 ML SYRINGE SC SCH ×2 (08:06→20:39)
[2020-03-08] MEDS: Zinc Sulfate 220 MG CAP PO SCH (08:07)
[2020-03-08] MEDS: Ascorbic Acid 500 mg Chewable Tablet PO SCH (08:08)
[2020-03-08] MEDS: Cholecalciferol 1,000 UNITS (25 MCG) TAB PO SCH (08:08)
--- NOTE | 2020-03-08 12:32 | PDOC.HOSPP ---
- Subjective Encounter Date: 03/08/20 Encounter Time: 07:00 Subjective: Patient seen for follow-up regarding COVID-19 pneumonia. Reports occasional dry cough. Denies fevers. - Objective Vital Signs & Weight: Vital Signs (12 hours) Temp Pulse Resp BP BP Pulse Ox 03/08/20 08:00 97.4 F L 66 20 136/68 94 L 03/08/20 03:10 97.9 F 84 26 H 156/70 H 93 L 03/08/20 00:55 93 L 03/08/20 00:50 88 L Weight Admit Weight 160 lb 12.8 oz Weight 160 lb 12.8 oz I&O: 03/07/20 03/08/20 03/09/20 06:59 06:59 06:59 Intake Total 840 Output Total 1600 Balance -760 Result Diagrams: 03/08/20 04:59 03/08/20 04:59 Additional Labs: Labs and MAR reviewed by me EKG Reviewed by me: Yes (Telemetry: NSR) Hospitalist ROS - Review of Systems Respiratory: reports: cough, dry, SOB with excertion. denies: shortness of breath, hemoptysis, pleuritic pain, sputum, wheezing Cardiovascular: denies: chest pain, palpitations, orthopnea, paroxysmal noc. dyspnea, edema, light headedness - Medication Medications: Active Medications Generic Name Dose Route Start Last Admin Trade Name Freq PRN Reason Stop Dose Admin Ascorbic Acid 1,000 mg 03/08/20 09:00 03/08/20 08:08 Ascorbic Acid 500 Mg Chewable Tablet PO 1,000 mg DAILY LOUISE Administration Atorvastatin Calcium 20 mg 03/07/20 21:00 03/07/20 21:09 Atorvastatin Calcium 20 Mg Tab PO 20 mg HS LOUISE Administration Cholecalciferol 1,000 units 03/08/20 09:00 03/08/20 08:08 Cholecalciferol 1,000 Units (25 Mcg) Tab PO 1,000 units DAILY LOUISE Administration Cyclobenzaprine HCl 5 mg 03/07/20 20:58 03/07/20 21:08 Cyclobenzaprine 10 Mg Tab PO 5 mg BIDPRN PRN Administration Muscle Spasm Enoxaparin Sodium 70 mg 03/07/20 21:00 03/08/20 08:06 Enoxaparin Sodium 80 Mg/0.8 Ml Syringe SC 70 mg 0900,2100 LOUISE Administration Metoprolol Succinate 50 mg 03/07/20 21:00 03/07/20 21:09 Metoprolol Succinate Xl 50 Mg Tab PO 50 mg HS LOUISE Administration Zinc Sulfate 220 mg 03/08/20 09:00 03/08/20 08:07 Zinc Sulfate 220 Mg Cap PO 220 mg DAILY LOUISE Administration - Exam General Appearance: awake alert Eye: anicteric sclera ENT: normocephalic atraumatic Neck: supple, symmetric, no thyromegaly, no lymphadenopathy Heart: RRR, no gallops, no rubs, normal peripheral pulses Respiratory: CTAB, no wheezes, no rales, no ronchi, normal chest expansion Gastrointestinal: soft, non-tender, non-distended, normal bowel sounds Musculoskeletal: no muscle wasting Psychiatric: normal affect, normal behavior, A&O x 3 Hosp A/P (1) Acute respiratory failure with hypoxia Code(s): J96.01 - ACUTE RESPIRATORY FAILURE WITH HYPOXIA Status: Acute (2) Pneumonia due to COVID-19 virus Code(s): U07.1 - COVID-19; J12.89 - OTHER VIRAL PNEUMONIA Status: Acute (3) Pulmonary embolism Code(s): I26.99 - OTHER PULMONARY EMBOLISM WITHOUT ACUTE COR PULMONALE Status: Acute (4) Dyslipidemia Code(s): E78.5 - HYPERLIPIDEMIA, UNSPECIFIED Status: Chronic (5) Radiculopathy Code(s): M54.10 - RADICULOPATHY, SITE UNSPECIFIED Status: Chronic - Plan Acute hypoxic respiratory failure: Secondary to COVID-19 pneumonia. Patient has been started on dexamethasone. COVID-19 pneumonia: Continue vitamin C, dexamethasone and zinc. Pulmonary embolism: Patient is on therapeutic Lovenox. Continue Lovenox for now, transition to oral anticoagulant. Dyslipidemia: Continue Lipitor 20 mg at bedtime. Hypertension: Continue metoprolol succinate 50 mg at bedtime. Hospital reportedly does not carry Soma. Patient to bring her own medication from home if possible.
[2020-03-08] MEDS: Dexamethasone 10 MG in Sodium Chloride 0.9% 50 ML IVPB SCH (14:13)
[2020-03-08] MEDS: Atorvastatin Calcium 20 MG TAB PO SCH (20:39)
[2020-03-08] MEDS: SOMA 350 MG PO SCH (22:59)
[2020-03-09] MEDS: Enoxaparin Sodium 80 MG/0.8 ML SYRINGE SC SCH (08:56)
[2020-03-09] MEDS: Cholecalciferol 1,000 UNITS (25 MCG) TAB PO SCH (08:56)
[2020-03-09] MEDS: Zinc Sulfate 220 MG CAP PO SCH (08:56)
[2020-03-09] MEDS: Ascorbic Acid 500 mg Chewable Tablet PO SCH (08:56)
[2020-03-09] MEDS: Dexamethasone 10 MG in Sodium Chloride 0.9% 50 ML IVPB SCH (08:56)
--- NOTE | 2020-03-09 12:58 | PQF ---
CLINICAL DOCUMENTATION CLARIFICATION FORM: Dear Dr. Ovalle Date: 03/09/2020 Please exercise your independent, professional judgment in responding to the clarification form. Clinical indicators are provided on the bottom of this form for your review. Please check appropriate box(s): [ ] Sepsis due to COVID-19 [ x ] Localized infection without Sepsis [ ] Other diagnosis [ ] Unable to determine In addition, please specify: Present on Admission (POA): [x ] Yes [ ] No [ ] Unable to determine For continuity of documentation, please document condition throughout progress notes and discharge summary. Thank You. CLINICAL INDICATORS - SIGNS / SYMPTOMS / LABS / RESULTS AND LOCATION IN EMR *ED 03/07: Vital Signs: O2 Sat 86% RA to 94-98% on 3L Oxygen, RR 18-24 Pulse 82-93 T (max) 99.2 oral *LAB (EMR): Neutrophils % CRP 03/07 87.0 13.71 03/08 80.1 *H&P 03/07 (Affram): * A weeks history of ongoing worsening shortness of breath. * With worsening hypoxia today with oxygen saturation high 80s * Acute hypoxic respiratory failure Secondary to Covid, also concerns for PE * Pneumonia due to Covid RISK FACTORS / RESULTS AND LOCATION IN EMR *H&P 03/07 ([facility]ram): * 79-year-old * Pneumonia due to Covid TREATMENTS / RESULTS AND LOCATION IN EMR *ED 03/07: Azithromycin IV, Cefepime IV, Dexamethasone IV, NS 500ml IV *LAB (EMR): CBC 03/07, 03/08, Lactic Acid 03/07, CRP 03/07 *H&P 03/07 (Affram): Continue oxygen therapy Consider dexamethasone . Anticoagulation *PN 03/08 (Vasquez): Continue vitamin C, dexamethasone and zinc. Thank you, Annia CDS/Telephone Answerer Signature: Annia Vega RN, CDS Phone #: [phone] [email or web address] This is a permanent part of the Medical Record [facility]
--- NOTE | 2020-03-09 16:53 | PDOC.HOSPP ---
- Subjective Encounter Date: 03/09/20 Encounter Time: 08:00 Subjective: Patient seen in follow-up regarding hypoxic respiratory failure. Reports feeling better. Denies chest pain. Occasional dry cough. - Objective Vital Signs & Weight: Vital Signs (12 hours) Temp Pulse Resp BP BP Pulse Ox 03/09/20 12:34 98.4 F 75 18 126/74 99 03/09/20 09:09 98 F 69 20 157/72 H 98 Weight Admit Weight 160 lb 12.8 oz Weight 160 lb 12.8 oz I&O: 03/08/20 03/09/20 03/10/20 06:59 06:59 06:59 Intake Total 840 1140 Output Total 1600 950 100 Balance -760 190 -100 Result Diagrams: 03/08/20 04:59 03/08/20 04:59 Additional Labs: I reviewed patient's labs and MAR EKG Reviewed by me: Yes (Normal sinus rhythm on telemetry) Hospitalist ROS - Review of Systems Respiratory: reports: cough, dry. denies: shortness of breath, hemoptysis, SOB with excertion, pleuritic pain, sputum, wheezing Genitourinary: denies: dysuria, frequency, incontinence, hematuria, retention - Medication Medications: Active Medications Generic Name Dose Route Start Last Admin Trade Name Freq PRN Reason Stop Dose Admin Ascorbic Acid 1,000 mg 03/08/20 09:00 03/09/20 08:56 Ascorbic Acid 500 Mg Chewable Tablet PO 1,000 mg DAILY LOUISE Administration Atorvastatin Calcium 20 mg 03/07/20 21:00 03/08/20 20:39 Atorvastatin Calcium 20 Mg Tab PO 20 mg HS LOUISE Administration Cholecalciferol 1,000 units 03/08/20 09:00 03/09/20 08:56 Cholecalciferol 1,000 Units (25 Mcg) Tab PO 1,000 units DAILY LOUISE Administration Cyclobenzaprine HCl 5 mg 03/07/20 20:58 03/07/20 21:08 Cyclobenzaprine 10 Mg Tab PO 5 mg BIDPRN PRN Administration Muscle Spasm Enoxaparin Sodium 70 mg 03/07/20 21:00 03/09/20 08:56 Enoxaparin Sodium 80 Mg/0.8 Ml Syringe SC 70 mg 0900,2100 LOUISE Administration Dexamethasone 10 mg/ Sodium 51 mls @ 100 mls/hr 03/08/20 09:00 03/09/20 08:56 Chloride IVPB 51 mls DAILY LOUISE Administration Metoprolol Succinate 50 mg 03/07/20 21:00 03/08/20 20:39 Metoprolol Succinate Xl 50 Mg Tab PO 50 mg HS LOUISE Administration Soma 350mg Patient's 1 each 03/08/20 21:00 03/08/20 22:59 Home Medication PO 1 each HS LOUISE Administration Zinc Sulfate 220 mg 03/08/20 09:00 03/09/20 08:56 Zinc Sulfate 220 Mg Cap PO 220 mg DAILY LOUISE Administration - Exam General Appearance: awake alert Eye: anicteric sclera ENT: moist mucosa Neck: supple Heart: RRR, no gallops, no rubs Respiratory: CTAB Gastrointestinal: soft, non-tender Skin: no rashes Psychiatric: normal affect, normal behavior Hosp A/P (1) Acute respiratory failure with hypoxia Code(s): J96.01 - ACUTE RESPIRATORY FAILURE WITH HYPOXIA Status: Acute (2) Pneumonia due to COVID-19 virus Code(s): U07.1 - COVID-19; J12.89 - OTHER VIRAL PNEUMONIA Status: Acute (3) Pulmonary embolism Code(s): I26.99 - OTHER PULMONARY EMBOLISM WITHOUT ACUTE COR PULMONALE Status: Acute (4) Radiculopathy Code(s): M54.10 - RADICULOPATHY, SITE UNSPECIFIED Status: Chronic (5) Dyslipidemia Code(s): E78.5 - HYPERLIPIDEMIA, UNSPECIFIED Status: Chronic - Plan Acute hypoxic respiratory failure: Patient is clinically improving, continue dexamethasone. COVID-19 pneumonia: Patient is clinically improving, continue vitamin C, dexamethasone and zinc. Pulmonary embolism: Transition to apixaban. Dyslipidemia: Continue Lipitor. Hypertension: Continue metoprolol succinate.
[2020-03-09] MEDS: Apixaban 5 MG TAB PO SCH (22:35)
[2020-03-09] MEDS: SOMA 350 MG PO SCH (22:35)
[2020-03-09] MEDS: Atorvastatin Calcium 20 MG TAB PO SCH (22:36)
[2020-03-10 04:59] LABS: #Monocytes 0.4 thou/uL (0.11-0.59); #Neutrophils 4.2 thou/uL (1.40-6.50); %Basophils 0.2 % (0.0-1.0); %Eosinophils 0.8 % (0.0-10.0); %Lymphocytes 17.2 % (21.0-51.0); %Monocytes 7.4 % (0.0-10.0); %Neutrophils 74.3 % (42.0-75.0); Hemoglobin 11.7 g/dL (12.0-16.0); Mean Corpuscular HGB CONC 34.1 g/dL (32.0-36.0); Platelet Count 349 thou/uL (130-400); RBC Distribution Width 12.5 % (11.5-14.5); Red Blood Cell (RBC) Count 3.88 mill/uL (4.20-5.40); White Blood Cell (WBC) Count 5.7 thou/uL (4.8-10.8)
[2020-03-10 05:26] LABS: Anion Gap 13 mmol/L (10-20); BUN (Urea Nitrogen) 11 mg/dL (9.8-20.1); Calc. Creatinine Clearance 81 mL/min (70-130); Calcium 8.9 mg/dL (7.8-10.44); Carbon Dioxide 29 mmol/L (23-31); Chloride 102 mmol/L (98-107); Estimated GFR-MDRD 89; Glucose 89 mg/dL (83-110); Potassium 3.8 mmol/L (3.5-5.1); Sodium 140 mmol/L (136-145)
[2020-03-10] MEDS: Apixaban 5 MG TAB PO SCH (09:42)
[2020-03-10] MEDS: Dexamethasone 10 MG in Sodium Chloride 0.9% 50 ML IVPB SCH (09:42)
[2020-03-10] MEDS: Ascorbic Acid 500 mg Chewable Tablet PO SCH (09:42)
[2020-03-10] MEDS: Cholecalciferol 1,000 UNITS (25 MCG) TAB PO SCH (09:42)
[2020-03-10] MEDS: Zinc Sulfate 220 MG CAP PO SCH (09:42)
[2020-03-10 12:39] VITALS: BP 132/59; TEMP 97.7
--- NOTE | 2020-03-12 08:25 | DIS ---
DATE OF ADMISSION: 03/07/2020 DATE OF DISCHARGE: 03/10/2020 PRIMARY CARE PROVIDER: Edmond Shane MD DISCHARGE DIAGNOSES: 1. Acute hypoxic respiratory failure. 2. COVID-19 pneumonia. 3. Hypokalemia. 4. Pulmonary embolism. CONDITION OF PATIENT ON THE DAY OF DISCHARGE: Stable. I assessed Ms. Campos on the day of discharge. She denies any chest pain or shortness of breath. Vital signs are stable. S1 and S2 are heard, regular. Lungs are clear to auscultation bilaterally. HOSPITAL COURSE: Ms. Campos is a pleasant 79-year-old lady, who was admitted to [facility] on March 07, 2020, for acute hypoxic respiratory failure secondary to COVID-[address] angiogram of the chest done at the time of admission showed possible small pulmonary embolism in the right lower lobe arterial branch as well as COVID pneumonia. She was started on dexamethasone. She improved clinically. She was also treated with therapeutic Lovenox and is being transitioned to apixaban at the time of discharge. On the day of discharge, she is feeling well and saturating well on room air. POST-ACUTE CARE FOLLOWUP: With primary care provider in 3 days. ACTIVITY: As tolerated. DIET: Heart healthy. DISCHARGE MEDICATIONS: 1. Dexamethasone 6 mg daily for 6 more days. 2. Apixaban 10 mg 2 times a day for 6 more days followed by 5 mg 2 times a day. Otherwise, no change was made to her pre-admission home medications. Many thanks for allowing me to participate in your patient's care. Please feel free to contact me with any questions or concerns. DISCHARGE DISPOSITION: Home. TIME SPENT: Total amount of time spent coordinating this discharge: 32 minutes. Job ID: [id number]
== END 2020-03-10 13:30 | disposition home or self-care (01) | DRG 177 ==
LOC: ERS 08:44 → ERHOLD 10:47 → 2SW 14:54
PROVIDERS: ADMIT Student in an Organized Health Care Education/Training Program; ATTEND Internal Medicine
DX: U07.1 COVID-19 (principal); J12.89 Other viral pneumonia; I26.99 Other pulmonary embolism without acute cor pulmonale; J96.01 Acute respiratory failure with hypoxia; M54.10 Radiculopathy, site unspecified; E78.00 Pure hypercholesterolemia, unspecified; Z96.653 Presence of artificial knee joint, bilateral; Z98.890 Other specified postprocedural states; Z90.710 Acquired absence of both cervix and uterus; Z88.6 Allergy status to analgesic agent; Z79.899 Other long term (current) drug therapy; Z88.8 Allergy status to other drugs, medicaments and biological substances; E87.6 Hypokalemia
CPT/HCPCS: 36415; 71045; 71275; 80048; 80053; 82550; 82728; 83605; 83880; 84484; 85025; 85379; 86140; 87040; 93005; 93010; 96365; 96367; 96372; 96375; J0456; J0696; J1100; J1650

== ENCOUNTER 2020-05-17 08:19 | Outpatient (CLI) | payer MEDICARE, OTHER ==
--- NOTE | 2020-05-17 10:03 | CT ---
CT ANGIOGRAM THORAX WITH IV CONTRAST AND 3-D RECONSTRUCTIONS CLINICAL INDICATION: Follow-up pulmonary embolism. History of Covid 19 in 02/29/2020 COMPARISON: 03/07/2020 FINDINGS: Pulmonary arteries: No filling defects are seen in the pulmonary arteries to suggest a pulmonary embo bonita. There was mention of a possible filling defect in a right lower lobe pulmonary artery on prior exam, but this finding is not present on today's examination. Aorta: Vascular calcifications are seen in the thoracic aorta. The thoracic aorta is normal in calibe r without evidence of an aortic dissection. Lungs: There has been significant interval improvement in the groundglass and patchy parenchymal dens ities seen diffusely throughout the lungs on prior exam. There is residual mild groundglass densities seen within the lungs with linear densities also seen scattered within the lung bases. Thes e residual densities could be related to mild scarring. No new consolidation is seen, and there is no pleural effusion identified. Mediastinum: Calcified subcarinal lymph nodes are present. No enlarged lymph nodes are seen by CT siz e criteria. Thyroid gland: Normal CT appearance. Osseous structures: Postoperative changes left shoulder are again seen. Degenerative changes are note d in the spine. Chest wall: No abnormality visualized. Upper abdomen: Vascular calcifications in the abdominal aorta. Visualized imaged abdomen is otherwise normal CT appearance for phase of imaging. IMPRESSION: 1. No CT evidence of a pulmonary embolus. 2. Vascular calcifications in the thoracic and visualized abdominal aorta. 3. Significant interval improvement in patchy parenchymal densities and diffuse groundglass densities previously seen on study on 03/07/2020. However, there are residual minimal groundglass and linear densities present which could be related to areas of residual mild scarring.
== END 2020-05-17 08:20 | disposition home or self-care (01) ==
LOC: BICCT 08:19
PROVIDERS: ATTEND Family Medicine
DX: I26.99 Other pulmonary embolism without acute cor pulmonale (principal); I70.0 Atherosclerosis of aorta; J98.4 Other disorders of lung
CPT/HCPCS: 71275; 82565

== ENCOUNTER 2021-01-22 13:30 | Outpatient (CLI) | payer MEDICARE, OTHER ==
[~2021-01-22 13:30] MED LIST: Magnevist 469MG/ML 20 ML VIAL ONE
== END 2021-01-22 13:31 | disposition home or self-care (01) ==
LOC: BICMRI 13:30
PROVIDERS: ATTEND Specialist
DX: M51.16 Intervertebral disc disorders with radiculopathy, lumbar region (principal); M48.02 Spinal stenosis, cervical region; M96.1 Postlaminectomy syndrome, not elsewhere classified; G95.9 Disease of spinal cord, unspecified; M47.812 Spondylosis without myelopathy or radiculopathy, cervical region; M47.813 Spondylosis without myelopathy or radiculopathy, cervicothoracic region; M47.26 Other spondylosis with radiculopathy, lumbar region; M43.12 Spondylolisthesis, cervical region; Z98.890 Other specified postprocedural states; Z98.1 Arthrodesis status
CPT/HCPCS: 72050; 72110; 72141; 72158; A9579

== ENCOUNTER 2022-07-19 12:44 | Outpatient (CLI) | payer MEDICARE ==
[2022-07-19 13:53] LABS: #Eosinphils 0.1 10x3/uL (0.0-0.5); #Monocytes 0.3 10x3/uL (0.0-1.1); #Neutrophils 3.2 10x3/uL (1.5-8.4); %Basophils 0.6 % (0.0-2.0); %Eosinophils 1.7 % (0.0-6.0); %Lymphocytes 30.7 % (18.0-47.0); %Monocytes 5.7 % (0.0-10.0); %Neutrophils 61.1 % (40.0-75.0); Mean Corpuscular HGB CONC 32.9 g/dL (32.0-36.0); Mean Corpuscular Hemoglobin 29.8 pg (27.0-33.0); Mean Corpuscular Volume 90.6 fl (81.6-98.3); Mean Platelet Volume 8.8 fl (7.4-10.4); Platelet Count 332 10x3/uL (150-450); RBC Distribution Width 13.1 % (11.5-14.5); Red Blood Cell (RBC) Count 4.03 10x6/uL (3.90-5.03); White Blood Cell (WBC) Count 5.2 10x3/uL (3.5-10.5)
== END 2022-07-19 12:45 | disposition home or self-care (01) ==
LOC: LABBT 12:44
PROVIDERS: ATTEND Orthopaedic Surgery Hand Surgery
DX: Z01.818 Encounter for other preprocedural examination (principal); G56.21 Lesion of ulnar nerve, right upper limb; M67.431 Ganglion, right wrist
CPT/HCPCS: 85025; 93005; 93010

== ENCOUNTER 2022-07-23 05:27 | Day surgery (SDC) | payer MEDICARE ==
[2022-07-19 15:50] VITALS: BMI 26.2
[2022-07-23] MEDS ORDERED: Bacitracin Zinc Ointment 30 gm TUBE ONE (06:11)
[2022-07-23] MEDS ORDERED: Bupivacaine PF 0.5% 30 ML VIAL ONE ×2 (06:11→08:49)
[2022-07-23] MEDS ORDERED: Neomycin-Polymyxin 1 ML AMP ONE (06:11)
[2022-07-23] MEDS ORDERED: Betamet Acet/Betamet Na Ph 30 MG/5 ML VIAL ONE (06:11)
[2022-07-23] MEDS ORDERED: fentaNYL PF 100 MCG/2 ML SYRINGE ONE (06:32)
[2022-07-23] MEDS ORDERED: CEFAZOLIN 2 GM VIAL ONE (06:50)
[2022-07-23] MEDS ORDERED: Sodium Chloride 0.9% 100 ML ONE (06:50)
[2022-07-23] MEDS ORDERED: PROPOFOL 200 MG/20 ML VIAL ONE (07:49)
[2022-07-23] MEDS ORDERED: Ondansetron PF 4 MG/2 ML Vial ONE (07:49)
[2022-07-23] MEDS ORDERED: Lidocaine 1% PF 5 ML VIAL ONE (07:49)
[2022-07-23] MEDS ORDERED: ePHEDrine 50 MG/ML VIAL ONE (07:49)
[2022-07-23] MEDS ORDERED: Dexamethasone 20 MG/5 ML VIAL ONE (07:49)
[2022-07-23] MEDS ORDERED: Ketorolac Tromethamine 30 MG/ML VIAL ONE (09:50)
[2022-07-23] MEDS ORDERED: FENTANYL 50 MCG/ML 1 ML VIAL ONE (09:50)
== END 2022-07-23 11:15 | disposition home or self-care (01) ==
LOC: SDC 05:27
PROVIDERS: ATTEND Orthopaedic Surgery Hand Surgery
PROC: 0RBN0ZZ Excision of Right Wrist Joint, Open Approach (ICD-10-PCS; principal; 2022-07-23)
PROC: 01N40ZZ Release Ulnar Nerve, Open Approach (ICD-10-PCS; 2022-07-23)
DX: G56.21 Lesion of ulnar nerve, right upper limb (principal); M67.431 Ganglion, right wrist; I10 Essential (primary) hypertension; Z79.82 Long term (current) use of aspirin; Z79.899 Other long term (current) drug therapy; Z88.5 Allergy status to narcotic agent; Z96.653 Presence of artificial knee joint, bilateral; Z98.1 Arthrodesis status
CPT/HCPCS: 25111; 64718; J3010; 88304; J0702; J1100; J1885; J2405; J2704; J3490; S0020

== ENCOUNTER 2023-11-27 07:22 | Inpatient (IN) | payer MEDICARE ==
[2023-11-19 12:01] VITALS: BMI 27.9
[2023-11-27] MEDS ORDERED: Vancomycin 1 GM/200 ML (FROZEN) BAG ONE (07:48)
[2023-11-27] MEDS ORDERED: Tranexamic Acid 1,000 MG/10 ML VIAL ONE (07:48)
[2023-11-27] MEDS ORDERED: Sodium Chloride 0.9% 100 ML ONE ×2 (07:48→08:39)
[2023-11-27] MEDS ORDERED: fentaNYL 50 mcg/mL 1 mL Vial ONE ×2 (08:37→09:29)
[2023-11-27] MEDS ORDERED: Ropivacaine 0.5% HCl/PF (150 MG/30 ML VIAL) ONE (08:38)
[2023-11-27] MEDS ORDERED: Ropivacaine 0.2% HCl/PF 20 ML ONE (08:38)
[2023-11-27] MEDS ORDERED: Midazolam HCl 2 mg/2 ml Vial ONE (08:38)
[2023-11-27] MEDS ORDERED: CEFAZOLIN 2 GM VIAL ONE (08:39)
[2023-11-27] MEDS ORDERED: Lidocaine 1% PF 5 ML VIAL ONE (09:29)
[2023-11-27] MEDS ORDERED: PROPOFOL 20 ML ONE (09:29)
[2023-11-27] MEDS ORDERED: Ondansetron PF 4 MG/2 ML Vial IVP PRN ×2 (09:30→14:16)
[2023-11-27] MEDS ORDERED: Ropivacaine 0.2% 550 ML 550 ML NERVE BLCK SCH (09:30)
[2023-11-27] MEDS ORDERED: HYDROcodone/Acetaminophen 10/325 mg Tablet PO PRN (09:30)
[2023-11-27] MEDS ORDERED: traMADol HCl 50 MG TAB PO PRN (09:30)
[2023-11-27] MEDS ORDERED: Promethazine HCl 25 MG/ML VIAL IM PRN (09:30)
[2023-11-27] MEDS ORDERED: Zolpidem Tartrate 5 MG TAB PO PRN ×2 (09:30→14:16)
[2023-11-27] MEDS ORDERED: Dexamethasone 20 MG/5 ML VIAL ONE (10:17)
[2023-11-27] MEDS ORDERED: Ketorolac Tromethamine 30 MG (1 mL) VIAL ONE (10:17)
[2023-11-27] MEDS ORDERED: Ondansetron PF 4 MG/2 ML Vial ONE ×2 (10:17→13:54)
[2023-11-27] MEDS ORDERED: ePHEDrine Sulfate 50 MG/10 ML VIAL ONE (10:35)
[2023-11-27] MEDS ORDERED: Milk Of Magnesia 30 ML UDCUP PO PRN (14:16)
[2023-11-27] MEDS ORDERED: Bisacodyl 10 MG SUPP PR PRN (14:16)
[2023-11-27] MEDS ORDERED: Ondansetron ODT 4 MG TAB PO PRN (14:16)
[2023-11-27] MEDS ORDERED: Methocarbamol 1 GM (10 mL) VIAL SLOW IVP PRN (14:16)
[2023-11-27] MEDS ORDERED: SODIUM CHLORIDE 0.9% IVPB PRN (14:53)
[2023-11-27] MEDS ORDERED: METHOCARBAMOL IVPB PRN (14:53)
[2023-11-27] MEDS ORDERED: Famotidine 20 MG TAB PO SCH (15:00)
[2023-11-27] MEDS: CEFAZOLIN 2 GM in Sodium Chloride 0.9% 100 ML IVPB SCH (15:36)
[2023-11-27] MEDS: Sodium Chloride 0.9% 1,000 ML IV SCH (15:36)
[2023-11-27] MEDS: Acetaminophen 325 MG TAB PO PRN (15:40)
[2023-11-27] MEDS: Famotidine 20 MG TAB PO SCH (21:13)
[2023-11-27] MEDS: traMADol HCl 50 MG TAB PO PRN (22:15)
[2023-11-27] MEDS: diphenhydrAMINE 50 MG CAP PO PRN (23:31)
[2023-11-28] MEDS: HYDROcodone/Acetaminophen 10/325 mg Tablet PO PRN (06:22)
[2023-11-28 13:30] VITALS: BP 145/72; TEMP 97.8
== END 2023-11-28 12:00 | disposition home or self-care (01) | DRG 483 ==
LOC: SDC 07:22 → SURG A 14:13 → OBSVTOIN 14:16
PROVIDERS: ADMIT Orthopaedic Surgery; ATTEND Orthopaedic Surgery
PROC: 0RRM0JZ Replacement of Left Elbow Joint with Synthetic Substitute, Open Approach (ICD-10-PCS; principal; 2023-11-27)
DX: M19.022 Primary osteoarthritis, left elbow (principal); I10 Essential (primary) hypertension; I25.10 Atherosclerotic heart disease of native coronary artery without angina pectoris; E78.00 Pure hypercholesterolemia, unspecified; Z96.653 Presence of artificial knee joint, bilateral; Z90.49 Acquired absence of other specified parts of digestive tract; Z88.5 Allergy status to narcotic agent; Z98.42 Cataract extraction status, left eye; Z98.41 Cataract extraction status, right eye
CPT/HCPCS: A4306; C1713; C1889; J1100; J1885; J2250; J2405; J2704; J2795; J3010; J3370-JW; J3490; J7050